=== PATIENT | male | born 1975 | race Caucasian/White ===

== ENCOUNTER 2021-03-11 11:32 | Observation (INO) ==
[2021-03-11 12:20] LABS: Basophils % 0.3 % (0.0-0.8); Eosinophils # 0.7 10*3/uL (0.0-0.87); Eosinophils % 10.1 % (0.00-10.9); Hematocrit 39.9 VOL% (42.0-52.0); Hemoglobin 13.6 GM/DL (14.0-18.0); Immature Granulocytes % 0.7 %; Immature Granulocytes Absolute 0.05 #; Lymphocytes # 1.9 10*3/uL (1.4-4.0); Lymphocytes % 25.9 % (21.2-54.2); Mean Corpuscular HGB Conc 34.1 GM/DL (32-36); Mean Corpuscular Volume 89.7 FL (87-102); Mean Platelet Volume 10.4 FL (9.6-12.0); Monocytes % 6.8 % (1.7-12.7); Neutrophils % 56.2 % (38.7-73.9); Platelet Count 182 T/CUMM (130-400); Red Blood Count 4.45 MC/CUMM (3.8-5.5); Red Cell Distribution Width 12.2 % (9.3-17.3); White Blood Count 7.3 T/CUMM (4-12)
[2021-03-11 13:00] LABS: Alanine Aminotransferase 36 U/L (16-61); Albumin 3.7 G/DL (3.4-5.0); Alkaline Phosphatase 76 U/L (45-117); Aspartate Amino Transferase 21 U/L (0-37); Bilirubin,Total < 0.39 MG/DL (0.2-1.0); Blood Urea Nitrogen 11 MG/DL (7-18); Calcium 8.4 MG/DL (8.5-10.1); Carbon Dioxide 27 MMOL/L (21-32); Estimated Glom Filtration Rate 130 ML/MIN; Glucose 224 MG/DL (74-106); Osmolality,Calculated 278.8 MOS/KG (273-304); Potassium 4.3 MMOL/L (3.5-5.1); Sodium 137 MMOL/L (136-145); Total Protein 6.8 G/DL (6.4-8.2)
[2021-03-11] MEDS ORDERED: ALUM/MAG/SIMETH/LIDO VISC 1:1 30 ML BOTTLE PO PRN (14:08)
[2021-03-11] MEDS ORDERED: ONDANSETRON 4 MG/2 ML VIAL IV PRN (14:08)
[2021-03-11] MEDS ORDERED: ACETAMINOPHEN 325 MG TABLET PO PRN (14:08)
[2021-03-11] MEDS ORDERED: DEXTROSE 50% 25 GM/50 ML VIAL IV PRN ×2 (14:08)
[2021-03-11] MEDS ORDERED: GLUCAGON 1 MG VIAL IM PRN ×2 (14:08)
[2021-03-11] MEDS ORDERED: traZODone 50 MG TABLET PO PRN (14:24)
[2021-03-11] MEDS ORDERED: ENOXAPARIN 100 MG/ML SYRINGE SUBCUT SCH (14:30)
[2021-03-11] MEDS ORDERED: KETOROLAC 30 MG/1 ML VIAL IV STA (14:32)
[2021-03-11] MEDS: LACTATED RINGERS 1,000 ML IV SCH ×2 (15:50→23:56)
[2021-03-11] MEDS: PANTOPRAZOLE 40 MG TABLET PO SCH (15:51)
[2021-03-11] MEDS ORDERED: INSULIN LISPRO 100 UNIT/ML SUBCUT SCH (17:00)
[2021-03-11] MEDS: INSULIN LISPRO 100 UNIT/ML SUBCUT SCH ×2 (18:16→20:42)
[2021-03-11 19:22] LABS: PT Patient Result 10.8 SECS (9.8-11.9); Partial Thromboplastin Time 31.4 SECS (23.9-33.8)
[2021-03-11] MEDS: NITROGLYCERIN SL 0.4 MG TABLET SL PRN ×2 (19:27→19:33)
[2021-03-11 19:41] LABS: Troponin I < 0.015 NG/ML (0.00-0.045)
[2021-03-11] MEDS: carvediloL 3.125 MG TABLET PO SCH (20:42)
[2021-03-11 21:23] LABS: Troponin I < 0.015 NG/ML (0.00-0.045)
[2021-03-12 05:31] LABS: Risk Ratio 7.39; VLDL CHOLESTEROL 131.2 MG/DL
[2021-03-12 08:35] VITALS: BP 141/70
[2021-03-12] MEDS: carvediloL 3.125 MG TABLET PO SCH (08:54)
[2021-03-12] MEDS: PANTOPRAZOLE 40 MG TABLET PO SCH (08:54)
[2021-03-12] MEDS ORDERED: LOSARTAN 25 MG TABLET PO SCH (09:00)
[2021-03-12] MEDS ORDERED: ASPIRIN EC 325 MG TABLET PO SCH (09:00)
[2021-03-12] MEDS ORDERED: Buprenorphine-Naloxone 8-2 mg film SL SCH (09:00)
[2021-03-12] MEDS: INSULIN LISPRO 100 UNIT/ML SUBCUT SCH (09:11)
== END 2021-03-12 10:55 | disposition home or self-care (01) ==
LOC: N.EDINP 11:32 → N.ED 11:32 → N.TELEN 17:50
PROVIDERS: ADMIT Internal Medicine; ATTEND Internal Medicine